=== PATIENT | female | born 1990 | race African-American/Black ===

== ENCOUNTER 2016-10-16 11:33 | Emergency (ER) | payer SELFPAY ==
[~2016-10-16] VITALS: Ht 157.5 cm; Wt 81.6 kg
[~2016-10-16 11:33] MED LIST: CEPHALEXIN500 MG ORAL; IBUPROFEN600 MG ORAL; IBUPROFEN800 MG ORAL; NKM; NORCO 5-325 TA1 EACH ORAL; PRENATAL VITAM1 EACH PO
[2016-10-16 11:44] VITALS: BP 111/75
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
[2016-10-16] MEDS ORDERED: IBUPROFEN800 MG ORAL (14:15)
[2016-10-16 14:32] VITALS: BP 117/75
--- NOTE | 2016-10-16 16:59 | Diagnostic Imaging Report ---
Indication: Chest pain Technique: One view of the chest Comparison: none Findings: Lungs and pleural spaces are clear. Heart size is normal Impression: No acute process
== END 2016-10-16 14:34 | disposition home or self-care (01) ==
LOC: EMR 14:07
DX: S20.219A Contusion of unspecified front wall of thorax, initial encounter (principal); V43.52XA Car driver injured in collision with other type car in traffic accident, initial encounter; Y92.410 Unspecified street and highway as the place of occurrence of the external cause; Y99.8 Other external cause status
CPT/HCPCS: 71010; 99283

== ENCOUNTER 2017-03-28 00:13 | Emergency (ER) | payer OTHER ==
[~2017-03-28] VITALS: Ht 157.5 cm; Wt 65.8 kg
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
[2017-03-28 01:56] VITALS: BP 129/86
[2017-03-28] MEDS ORDERED: IBUPROFEN600 MG ORAL (01:56)
--- NOTE | 2017-03-28 11:26 | Diagnostic Imaging Report ---
Indication: pain Findings: 3 views of the right hand were obtained. Normal bony mineralization and alignment are demonstrated. No acute fractures, erosions, or periosteal reaction are seen. Soft tissues are unremarkable. Impression: Negative examination of the right hand.
== END 2017-03-28 02:10 | disposition home or self-care (01) ==
LOC: EMR 01:00
DX: S60.221D Contusion of right hand, subsequent encounter (principal); Y08.89XD Assault by other specified means, subsequent encounter
CPT/HCPCS: 99283